=== PATIENT | male | born 1970 | race Caucasian/White ===

== ENCOUNTER → 2018-07-30 | Outpatient (CLI) | payer BC, OTHER ==
--- NOTE | 2018-07-30 02:04 | RAD ---
Ultrasound venous Doppler INDICATION:Right lower activity swelling TECHNIQUE: Grayscale, color Doppler and spectral waveform ultrasound images of the lower extremities deep veins obtained. COMPARISON: None FINDINGS: The right CFV, deep femoral vein and proximal superficial femoral vein are patent. Hypoechoic filling defect is seen in the mid SFV, distal SFV, popliteal vein and calf veins without evidence of blood flow. Right lower extremity calf edema noted. IMPRESSION: Acute occluding DVT in the mid SFV extending into the calf veins. Critical findings were discussed with Dr. Morales by stockholder on 07/30/2018 exam. Electronically signed by: José Manuel Callahan DO (07/30/2018 2:02 AM) [id number]
== END | disposition home or self-care (01) ==
LOC: US 01:25
PROVIDERS: ATTEND Family Medicine
DX: I82.411 Acute embolism and thrombosis of right femoral vein (principal); I82.811 Embolism and thrombosis of superficial veins of right lower extremity; I82.491 Acute embolism and thrombosis of other specified deep vein of right lower extremity
CPT/HCPCS: 93971